=== PATIENT | male | born 1985 | race Caucasian/White ===

== ENCOUNTER 2022-08-15 09:48 | Emergency (ER) | payer MEDICAID ==
[~2022-08-15] VITALS: Ht 170.2 cm; Wt 107.3 kg
[2022-08-15 10:10] LABS: COVID AG,FIA SOURCE NASAL SWAB
[2022-08-15 11:02] LABS: RAPID GROUP A STREP NEGATIVE (NEGATIVE)
[2022-08-15 11:10] LABS: INFLUENZA TYPE A NEGATIVE FOR TYPE A (NEGATIVE); INFLUENZA TYPE B NEGATIVE FOR TYPE B (NEGATIVE)
[2022-08-15] MEDS ORDERED: HYDROCODONE/ACETAMINOPHEN 5-325 MG TABLET PO ONE (11:30)
[2022-08-15] MEDS ORDERED: AMOXICILLIN TRIHYDRATE 250 MG CAPSULE PO ONE (11:30)
[2022-08-15] MEDS ORDERED: TRAM-559 PO (11:38)
[2022-08-15] MEDS ORDERED: AMOX500C2 PO (11:38)
[2022-08-15 11:57] VITALS: BP 116/69
== END 2022-08-15 12:00 | disposition home or self-care (01) ==
LOC: EMS 09:48
DX: H66.42 Suppurative otitis media, unspecified, left ear (principal); Z20.822 Contact with and (suspected) exposure to COVID-19
CPT/HCPCS: 87430; 87804; 99283